=== PATIENT | male | born 1955 | race African-American/Black ===

== ENCOUNTER 2016-11-02 15:58 | Emergency (ER) | payer MEDICAID ==
[~2016-11-02] VITALS: Ht 185.4 cm; Wt 85.3 kg
[~2016-11-02 15:58] MED LIST: BP MED; METF10002 PO
[2016-11-02] MEDS ORDERED: ONDANSETRON 2MG/ML, 2ML IVPush ONE (16:30)
[2016-11-02] MEDS ORDERED: SODIUM CHLORIDE 0.9% 1,000ML IVBOLUS ONE (16:30)
[2016-11-02] MEDS ORDERED: FAMOTIDINE 20 MG/2 ML IVP ONE (16:30)
[2016-11-02] MEDS ORDERED: ONDANSETRON ODT 4 MG ONE (18:21)
[2016-11-02 18:25] VITALS: BP 137/96
[2016-11-02] MEDS ORDERED: ONDANSETRON ODT 4 MG PO ONE (18:30)
== END 2016-11-02 18:44 | disposition home or self-care (01) ==
LOC: ED 18:41
DX: R19.7 Diarrhea, unspecified (principal); R11.2 Nausea with vomiting, unspecified; I10 Essential (primary) hypertension
CPT/HCPCS: 99282; Q0162

== ENCOUNTER 2016-12-29 11:49 | Emergency (ER) | payer MEDICAID ==
[~2016-12-29] VITALS: Ht 185.4 cm; Wt 81.0 kg
[2016-12-29 13:08] VITALS: BP 140/94
== END 2016-12-29 13:22 | disposition home or self-care (01) ==
LOC: ED 12:50
DX: J20.8 Acute bronchitis due to other specified organisms (principal); I10 Essential (primary) hypertension; E11.9 Type 2 diabetes mellitus without complications
CPT/HCPCS: 71020; 93005

== ENCOUNTER 2018-07-28 15:38 | Emergency (ER) | payer MEDICAID ==
[~2018-07-28] VITALS: Ht 185.4 cm; Wt 79.3 kg
[2018-07-28 15:43] VITALS: BP 126/73
--- NOTE | 2018-07-28 17:35 | NUR ---
Pt here for low left sided back pain for about 3 days. Pain radiated down left leg once. No difficulty ambulating and pt walked to ER. Denies urinary symptoms. PMH hypertension. Not currently taking medication. Alert and oriented.
--- NOTE | 2018-07-28 17:56 | NUR ---
RECEVIED REPORT FROM PERRI PANIAGUA. CARE ASSUMED. PT UP FOR RECHECK. FALL PRECAUTIONS IN PLACE. SIDE RAILS UPX2. CALL LIGHT IN REACH
--- NOTE | 2018-07-28 18:15 | NUR ---
PT LAYING ON GURNERY WITH EYES CLOSED WITH SIGNIFICANT OTHER. AWAITING RECHECK. CALL LIGHT IN REACH.
--- NOTE | 2018-07-28 18:32 | NUR ---
DR. CAMARILLO AT BEDSIDE FOR RECHECK.
== END 2018-07-28 18:37 | disposition home or self-care (01) ==
LOC: ED 18:15
DX: S39.012A Strain of muscle, fascia and tendon of lower back, initial encounter (principal); E11.9 Type 2 diabetes mellitus without complications; I10 Essential (primary) hypertension; X58.XXXA Exposure to other specified factors, initial encounter; Y93.89 Activity, other specified; Y92.89 Other specified places as the place of occurrence of the external cause; Y99.8 Other external cause status
CPT/HCPCS: 72110; 99283

== ENCOUNTER 2020-02-28 03:44 | Emergency (ER) | payer MEDICARE, MEDICAID ==
[2020-02-28 03:53] VITALS: BP 150/96
== END 2020-02-28 04:55 | disposition home or self-care (01) ==
LOC: ED 04:14
DX: S50.862A Insect bite (nonvenomous) of left forearm, initial encounter (principal); S50.861A Insect bite (nonvenomous) of right forearm, initial encounter; F15.10 Other stimulant abuse, uncomplicated; F17.210 Nicotine dependence, cigarettes, uncomplicated; E11.9 Type 2 diabetes mellitus without complications; I10 Essential (primary) hypertension; W57.XXXA Bitten or stung by nonvenomous insect and other nonvenomous arthropods, initial encounter; Y93.89 Activity, other specified; Y92.89 Other specified places as the place of occurrence of the external cause; Y99.8 Other external cause status
CPT/HCPCS: 99282; 99406

== ENCOUNTER 2020-03-09 08:43 | Emergency (ER) | payer MEDICARE, MEDICAID ==
[~2020-03-09] VITALS: Ht 185.4 cm; Wt 81.0 kg
--- NOTE | 2020-03-09 09:11 | NUR ---
ASSUMED CARE OF PT AT THIS TIME FROM LOBBY. AMBULATORY TO ROOM WITH STEADY GAIT. 64 Y/O M PRESENTS STATING "MY GOT TREATED FOR STD THIS MORNING, MAYBE CHLAMYDIA OR GHONORRHEA, AND I NEED TO BE CHECKED, I'M NOT HAVING SYMPTOMS BUT I WANT TO BE SURE. MY BLOOD PRESSURE HAS BEEN HIGH I HAVEN'T TAKEN MY MEDICATIONS FOR 5+YEARS." DENIES ANY PAIN, ABD PAIN, PAINFUL URINATION, DISCHARGE, ITCHING. CONT PULSE OX, BP MONITORS. VSS. CALL LIGHT IN REACH. FALL PRECAUTIONS IN PLACE. SPOUSE AT BEDSIDE. DR. COTTON AT BEDSIDE FOR EVALUATION. AWAITING ORDERS. A&OX4.
[2020-03-09] MEDS ORDERED: AZITHROMYCIN 500 MG TABLET ONE (09:28)
[2020-03-09] MEDS ORDERED: CEFTRIAXONE 250 MG ONE (09:29)
[2020-03-09] MEDS ORDERED: CEFTRIAXONE 250 MG IM ONE (09:30)
[2020-03-09] MEDS ORDERED: LIDOCAINE-MPF 1%, 5ML ONE (09:30)
[2020-03-09] MEDS ORDERED: AZITHROMYCIN 500 MG TABLET PO ONE (09:30)
--- NOTE | 2020-03-09 09:38 | NUR ---
PT MEDICATED NOTED IN [facility] PER MD ORDER. DR. COTTON OBTAINED SWAB AND SENT TO LAB
[2020-03-09 09:51] VITALS: BP 133/79
== END 2020-03-09 09:54 | disposition home or self-care (01) ==
LOC: ED 09:17
DX: Z20.2 Contact with and (suspected) exposure to infections with a predominantly sexual mode of transmission (principal); I10 Essential (primary) hypertension; E11.9 Type 2 diabetes mellitus without complications; F17.200 Nicotine dependence, unspecified, uncomplicated
CPT/HCPCS: 87491; 87591; 96372; 99283; J0696

== ENCOUNTER 2020-04-09 17:10 | Emergency (ER) | payer MEDICARE, MEDICAID ==
[~2020-04-09] VITALS: Ht 185.4 cm; Wt 84.0 kg
[2020-04-09 17:21] VITALS: BP 135/98
== END 2020-04-09 18:15 | disposition home or self-care (01) ==
LOC: ED 18:09
DX: B85.1 Pediculosis due to Pediculus humanus corporis (principal)
CPT/HCPCS: 99282

== ENCOUNTER 2020-05-02 11:15 | Emergency (ER) | payer MEDICAID, MEDICARE ==
[~2020-05-02] VITALS: Ht 185.4 cm; Wt 82.8 kg
[2020-05-02 11:32] VITALS: BP 133/99
--- NOTE | 2020-05-02 12:56 | NUR ---
pt to rm from lobby
== END 2020-05-02 13:31 | disposition home or self-care (01) ==
LOC: ED 13:25
DX: B85.1 Pediculosis due to Pediculus humanus corporis (principal); Z59.0 Homelessness
CPT/HCPCS: 99283

== ENCOUNTER 2020-05-11 12:45 | Emergency (ER) | payer MEDICARE, MEDICAID ==
[2020-05-11 13:11] VITALS: BP 161/92
== END 2020-05-11 13:34 | disposition home or self-care (01) ==
LOC: ED 13:18
DX: I10 Essential (primary) hypertension (principal); R21 Rash and other nonspecific skin eruption; R00.0 Tachycardia, unspecified; Z91.14 Patient's other noncompliance with medication regimen
CPT/HCPCS: 99281

== ENCOUNTER 2020-05-21 12:08 | Emergency (ER) | payer MEDICAID, MEDICARE ==
[~2020-05-21] VITALS: Ht 185.4 cm; Wt 84.1 kg
[2020-05-21 12:12] VITALS: BP 168/124
--- NOTE | 2020-05-21 12:35 | NUR ---
PEDIATRIC ONCOLOGY NURSE: Patient given discharge instructions and they have confirmed that they understand the instructions. Patient ambulatory with steady gait.
== END 2020-05-21 12:37 | disposition home or self-care (01) ==
LOC: ED 12:31
DX: R21 Rash and other nonspecific skin eruption (principal); F17.210 Nicotine dependence, cigarettes, uncomplicated; E11.9 Type 2 diabetes mellitus without complications; I10 Essential (primary) hypertension
CPT/HCPCS: 99281; 99406

== ENCOUNTER 2020-06-08 18:48 | Emergency (ER) | payer MEDICAID ==
[~2020-06-08] VITALS: Ht 185.4 cm; Wt 82.5 kg
--- NOTE | 2020-06-08 19:16 | NUR ---
Past week pt feels that BP has been high. Pt complaining of dizziness. Pt has been off BP medications for 4 years.
[2020-06-08 19:50] LABS: ANION GAP 5 mmol/L (5-15); CALCIUM 8.6 mg/dL (8.5-10.1); CHLORIDE 105 mmol/L (98-107)
[2020-06-08 19:54] LABS: BASOPHILS % (AUTO) 1 % (0-1); EOSINOPHILS % (AUTO) 2 % (1-7); LYMPHOCYTES % (AUTO) 43 % (22-44); MD NO; MEAN CORPUSCULAR HEMOGLOBIN 29.7 pg (27.5-34.5); MEAN PLATELET VOLUME 8.6 fL (7.4-10.4); MONOCYTES % (AUTO) 10 % (2-9); NEUTROPHILS % (AUTO) 44 % (42-75); PLATELET COUNT 176 x10^3/uL (130-400); RED BLOOD COUNT 5.33 x10^6/uL (4.38-5.82); RED CELL DISTRIBUTION WIDTH 12.9 % (9.4-14.8)
[2020-06-08 21:17] VITALS: BP 148/94
== END 2020-06-08 21:27 | disposition home or self-care (01) ==
LOC: ED 19:25
DX: R42 Dizziness and giddiness (principal); R94.31 Abnormal electrocardiogram [ECG] [EKG]; I10 Essential (primary) hypertension; E11.9 Type 2 diabetes mellitus without complications; F17.200 Nicotine dependence, unspecified, uncomplicated
CPT/HCPCS: 36415; 80048; 85025; 93005; 99284

== ENCOUNTER 2020-07-09 04:49 | Emergency (ER) | payer MEDICAID ==
[~2020-07-09] VITALS: Ht 185.4 cm; Wt 83.5 kg
[2020-07-09] MEDS ORDERED: AMPICILLIN/SULBACTAM 3 GM in SODIUM CHLORIDE 0.9% 100 ML IV ONE (05:19)
--- NOTE | 2020-07-09 05:22 | NUR ---
pt ambulated back to room.
[2020-07-09] MEDS ORDERED: ONDANSETRON 2MG/ML, 2ML ONE (05:29)
[2020-07-09] MEDS ORDERED: MORPHINE SULFATE 4 MG/ML, 1ML IV PRN (05:30)
[2020-07-09] MEDS ORDERED: MORPHINE SULFATE 4 MG/ML, 1ML ONE (05:30)
[2020-07-09] MEDS ORDERED: ONDANSETRON 2MG/ML, 2ML IVPush ONE (05:30)
[2020-07-09] MEDS ORDERED: SODIUM CHLORIDE FLUSH 10ML SYR IVF ONE (05:30)
--- NOTE | 2020-07-09 05:49 | NUR ---
MD to room to eval pt. IV started to right hand x1 attempt with 20g IV. blood drawn and sent to lab. ivf started, and antibiotics started. label stamper to bedside to draw blood cultures as well. meds given for nausea and for pain. pt tolerated well.
--- NOTE | 2020-07-09 06:06 | NUR ---
pt calm and cooperative. on cr monitor and call light within reach.
[2020-07-09 06:16] LABS: BASOPHILS % (AUTO) 1 % (0-1); EOSINOPHILS % (AUTO) 2 % (1-7); LYMPHOCYTES % (AUTO) 31 % (22-44); MEAN CORPUSCULAR HEMOGLOBIN 30.1 pg (27.5-34.5); MEAN CORPUSCULAR HGB CONC 33.3 g/dL (33.2-36.2); MONOCYTES % (AUTO) 12 % (2-9); NEUTROPHILS % (AUTO) 55 % (42-75); PLATELET COUNT 184 x10^3/uL (130-400); RED BLOOD COUNT 5.25 x10^6/uL (4.38-5.82)
[2020-07-09 06:17] LABS: MD NO
[2020-07-09 06:25] LABS: ALBUMIN 3.4 g/dL (3.4-5.0); ANION GAP 5 mmol/L (5-15); CALCIUM 9.1 mg/dL (8.5-10.1); CHLORIDE 109 mmol/L (98-107)
--- NOTE | 2020-07-09 06:26 | NUR ---
antibiotics complete. ivf NS 1 liter inline. pt resting and on cr monitor, no distress at this time. call light within reach
[2020-07-09 06:27] LABS: CREATININE 1.05 mg/dL (0.7-1.3)
[2020-07-09] MEDS ORDERED: CLINDAMYCIN PMX 300MG/50ML 50 ML IV ONE (06:52)
--- NOTE | 2020-07-09 06:55 | NUR ---
report and care transferred to day shift RN
--- NOTE | 2020-07-09 08:00 | NUR ---
PT TBDC, AWAITING PPWK
[2020-07-09 08:25] VITALS: BP 143/82
== END 2020-07-09 09:41 | disposition home or self-care (01) ==
LOC: ED 06:04
DX: L03.116 Cellulitis of left lower limb (principal); M79.605 Pain in left leg; I10 Essential (primary) hypertension; F17.200 Nicotine dependence, unspecified, uncomplicated
CPT/HCPCS: 36415; 80048; 82040; 85025; 87040; 96365; 96367; 96375; 99284; J0295; J2270; J2405

== ENCOUNTER 2020-07-14 01:15 | Emergency (ER) | payer MEDICAID ==
[~2020-07-14] VITALS: Ht 185.4 cm; Wt 85.0 kg
[2020-07-14 01:20] VITALS: BP 147/94
--- NOTE | 2020-07-14 02:37 | NUR ---
ELECTRICIAN CONTROL EQUIPMENT: PT. TO ROOM FROM LOBBY AT THIS TIME.
--- NOTE | 2020-07-14 02:59 | NUR ---
PT SITTING UPRIGHT ON GURNEY, NAD, VSS. PT DENIES ANY ADDITIONAL NEEDS AT THIS TIME. CALL LIGHT AND PERSONAL BELONGINGS WITHIN REACH. AWAITING ERP.
[2020-07-14] MEDS ORDERED: SULFAMETH./TRIMETHOPRIM DS 800MG/160MG TABLET ONE (03:17)
[2020-07-14] MEDS ORDERED: NEOSPORIN OINT. PKT 1 PACKET ONE (03:21)
[2020-07-14] MEDS ORDERED: SULFAMETH./TRIMETHOPRIM DS 800MG/160MG TABLET PO ONE (03:30)
--- NOTE | 2020-07-14 03:45 | NUR ---
Patient given discharge instructions and they have confirmed that they understand the instructions. Patient ambulatory with steady gait.
== END 2020-07-14 03:56 | disposition home or self-care (01) ==
LOC: ED 03:35
DX: L02.415 Cutaneous abscess of right lower limb (principal); I10 Essential (primary) hypertension; E11.9 Type 2 diabetes mellitus without complications
CPT/HCPCS: 99283

== ENCOUNTER 2020-08-08 21:02 | Emergency (ER) | payer MEDICAID ==
[~2020-08-08] VITALS: Ht 198.1 cm; Wt 83.0 kg
--- NOTE | 2020-08-08 21:13 | NUR ---
NOTCHED BLADE LOADER: EKG DONE IN TRIAGE AT THIS TIME.
[2020-08-08 22:28] LABS: BASOPHILS % (AUTO) 1 % (0-1); EOSINOPHILS % (AUTO) 2 % (1-7); LYMPHOCYTES % (AUTO) 43 % (22-44); MD NO; MEAN CORPUSCULAR HEMOGLOBIN 30.1 pg (27.5-34.5); MEAN CORPUSCULAR HGB CONC 33.3 g/dL (33.2-36.2); MEAN PLATELET VOLUME 8.6 fL (7.4-10.4); MONOCYTES % (AUTO) 13 % (2-9); NEUTROPHILS % (AUTO) 41 % (42-75); PLATELET COUNT 164 x10^3/uL (130-400); RED BLOOD COUNT 4.85 x10^6/uL (4.38-5.82); RED CELL DISTRIBUTION WIDTH 13.3 % (9.4-14.8)
[2020-08-08 22:37] LABS: ALANINE AMINOTRANSFERASE 52 U/L (12-78); ALBUMIN 2.9 g/dL (3.4-5.0); ANION GAP 6 mmol/L (5-15); CALCIUM 8.6 mg/dL (8.5-10.1); CHLORIDE 111 mmol/L (98-107); CREATININE 1.08 mg/dL (0.7-1.3)
[2020-08-08 22:41] LABS: ALKALINE PHOSPHATASE 130 U/L (45-117); BILIRUBIN,TOTAL 0.7 mg/dL (0.2-1.0); TOTAL PROTEIN 6.1 g/dL (6.4-8.2); TROPONIN I < 0.015 ng/mL (0.000-0.045)
[2020-08-08 23:16] VITALS: BP 142/99
== END 2020-08-08 23:18 | disposition home or self-care (01) ==
LOC: ED 21:46
DX: R42 Dizziness and giddiness (principal); R07.9 Chest pain, unspecified; R94.31 Abnormal electrocardiogram [ECG] [EKG]
CPT/HCPCS: 36415; 71045; 80053; 84484; 85025; 93005; 99285

== ENCOUNTER 2020-08-24 12:24 | Emergency (ER) | payer MEDICAID ==
[~2020-08-24] VITALS: Ht 185.4 cm; Wt 87.0 kg
[2020-08-24 12:57] VITALS: BP 167/102
== END 2020-08-24 13:45 | disposition home or self-care (01) ==
LOC: ED 13:00
DX: B86 Scabies (principal)
CPT/HCPCS: 99283

== ENCOUNTER 2020-11-22 13:33 | Inpatient (IN) | payer MEDICAID ==
[~2020-11-22] VITALS: Ht 185.4 cm; Wt 79.7 kg
[2020-11-22] MEDS ORDERED: SODIUM CHLORIDE 0.9% 1,000ML IVBOLUS ONE ×2 (14:00→14:30)
[2020-11-22 14:23] LABS: PH, VENOUS 7.376 pH (7.320-7.420)
[2020-11-22 14:26] LABS: FIO2 ROOM AIR %
[2020-11-22 14:27] LABS: BASOPHILS % (AUTO) 1 % (0-1); EOSINOPHILS % (AUTO) 1 % (1-7); LYMPHOCYTES % (AUTO) 25 % (22-44); MEAN CORPUSCULAR HGB CONC 32.9 g/dL (33.2-36.2); MEAN PLATELET VOLUME 10.5 fL (7.4-10.4); MONOCYTES % (AUTO) 8 % (2-9); NEUTROPHILS % (AUTO) 65 % (42-75); PLATELET COUNT 160 x10^3/uL (130-400); RED BLOOD COUNT 6.53 x10^6/uL (4.38-5.82); RED CELL DISTRIBUTION WIDTH 12.7 % (9.4-14.8)
[2020-11-22 14:29] LABS: MD NO
[2020-11-22 14:34] LABS: ALANINE AMINOTRANSFERASE 133 U/L (12-78); ALBUMIN 3.9 g/dL (3.4-5.0); ANION GAP 7 mmol/L (5-15); CALCIUM 9.9 mg/dL (8.5-10.1); CHLORIDE 93 mmol/L (98-107); CREATININE 1.91 mg/dL (0.7-1.3)
[2020-11-22 14:38] LABS: ALKALINE PHOSPHATASE 281 U/L (45-117); BILIRUBIN,TOTAL 1.8 mg/dL (0.2-1.0); TOTAL PROTEIN 8.6 g/dL (6.4-8.2); TROPONIN I < 0.015 ng/mL (0.000-0.045)
--- NOTE | 2020-11-22 14:52 | NUR ---
PT WITH INCREASED URINATION, THIRST AND HUNGER X 3 DAYS. MOUTH DRY AND FEELING DIZZY. DR GUERRERO AT BEDSIDE, PT ASSESSMENT, POC REVIEWED AND QUESTIONS ANSWERED. PIV EST AND IVF INFUSING W/O DIFFICULTY. ALL MONITORS INPLACE, VSS. CALL LIGHT W/I REACH
--- NOTE | 2020-11-22 14:54 | NUR ---
PT FRIEND, MARLENE PH [phone]. PT GAVE VERBAL OK FOR CLINICAL PRODUCT MANAGER TO DISCUSS PT STAUS WITH MARLENE.
[2020-11-22 15:06] LABS: MICROSCOPIC NOT IND
[2020-11-22] MEDS ORDERED: SODIUM BICARB 8.4%, 50ML SYRINGE IVPush ONE (15:30)
[2020-11-22] MEDS ORDERED: CALCIUM CHLORIDE 10%, 10ML SYR IVPush ONE (15:30)
[2020-11-22] MEDS ORDERED: CALCIUM CHLORIDE 10%, 10ML SYR ONE (15:52)
[2020-11-22] MEDS ORDERED: SODIUM BICARB 8.4%, 50ML SYRINGE ONE (15:52)
--- NOTE | 2020-11-22 15:57 | NUR ---
TASK RN: FSBS 535 AFTER 1ST LITER OF NS -ERP MADE AWARE-ASKED FOR FURTHER ORDERS FOR HYPERGLYCEMIA AND HYPERKALEMIA-ERP CONSIDERING MEDICATED PER [facility] WITH 2ND LITER OF NS, 5ML OF LOU-CL AND 1AMP OF BICARB
[2020-11-22 16:11] LABS: ACETONE, SERUM Small (20mg/dL) (Negative)
--- NOTE | 2020-11-22 16:31 | NUR ---
FSBS 576 AFTER 2ND LITER OF NS REPEAT BMP OBTAINED WELL DR. CHAIREZ AT BEDSIDE (HOSPITALIST)
[2020-11-22 16:50] LABS: ANION GAP 6 mmol/L (5-15); CHLORIDE 105 mmol/L (98-107); CREATININE 1.49 mg/dL (0.7-1.3)
[2020-11-22] MEDS: SODIUM CHLORIDE 0.9% 1,000 ML IV SCH ×2 (17:00→22:06)
[2020-11-22] MEDS: HEPARIN 5,000 UNITS/ML, 1ML SQ SCH ×2 (17:00→18:02)
[2020-11-22] MEDS ORDERED: hydrALAzine 20 MG/ML, 1ML IVPush PRN (17:00)
[2020-11-22] MEDS ORDERED: POLYETHYLENE GLYCOL 17 GM PACKET PO PRN (17:00)
[2020-11-22] MEDS ORDERED: INSULIN REGULAR 100 UNITS/ML, 3ML VIAL IVPush ONE (17:00)
[2020-11-22] MEDS ORDERED: ACETAMINOPHEN 325 MG TABLET PO PRN (17:00)
[2020-11-22] MEDS ORDERED: HYDROcodone/APAP 5/325 TABLET PO PRN (17:00)
[2020-11-22] MEDS ORDERED: ONDANSETRON 2MG/ML, 2ML IV PRN (17:00)
[2020-11-22] MEDS ORDERED: BISACODYL 10 MG SUPP PR PRN (17:00)
[2020-11-22] MEDS: INSULIN LISPRO 100 UNITS/ML, PEN SQ-INSULIN SCH ×2 (18:00→20:18)
[2020-11-22 18:56] LABS: ACETONE, SERUM Small (20mg/dL) (Negative)
[2020-11-22 19:59] VITALS: BP 129/64
[2020-11-22 21:22] LABS: ANION GAP 3 mmol/L (5-15); CALCIUM 8.8 mg/dL (8.5-10.1); CHLORIDE 111 mmol/L (98-107); CREATININE 1.36 mg/dL (0.7-1.3)
[2020-11-23] MEDS: HEPARIN 5,000 UNITS/ML, 1ML SQ SCH ×4 (00:27→17:19)
[2020-11-23 01:32] VITALS: BP 109/72
[2020-11-23 03:26] LABS: BASOPHILS % (AUTO) 1 % (0-1); EOSINOPHILS % (AUTO) 1 % (1-7); LYMPHOCYTES % (AUTO) 27 % (22-44); MD NO; MEAN CORPUSCULAR HEMOGLOBIN 30.1 pg (27.5-34.5); MEAN CORPUSCULAR HGB CONC 33.3 g/dL (33.2-36.2); MEAN PLATELET VOLUME 10.2 fL (7.4-10.4); MONOCYTES % (AUTO) 10 % (2-9); NEUTROPHILS % (AUTO) 61 % (42-75); PLATELET COUNT 121 x10^3/uL (130-400); RED BLOOD COUNT 5.17 x10^6/uL (4.38-5.82); RED CELL DISTRIBUTION WIDTH 12.4 % (9.4-14.8)
[2020-11-23 03:33] LABS: ANION GAP 5 mmol/L (5-15); CALCIUM 8.1 mg/dL (8.5-10.1); CHLORIDE 112 mmol/L (98-107); CREATININE 1.07 mg/dL (0.7-1.3)
[2020-11-23] MEDS: SODIUM CHLORIDE 0.9% 1,000 ML IV SCH (04:00)
[2020-11-23 07:40] VITALS: BP 134/84
[2020-11-23] MEDS ORDERED: INSULIN GLARGINE 100 UNITS/ML, PEN SQ-INSULIN SCH ×2 (09:00)
[2020-11-23 09:23] LABS: ANION GAP 6 mmol/L (5-15); CALCIUM 8.1 mg/dL (8.5-10.1); CHLORIDE 110 mmol/L (98-107); CREATININE 0.98 mg/dL (0.7-1.3)
[2020-11-23 09:38] LABS: ALANINE AMINOTRANSFERASE 94 U/L (12-78); ALKALINE PHOSPHATASE 149 U/L (45-117)
[2020-11-23] MEDS: INSULIN LISPRO 100 UNITS/ML, PEN SQ-INSULIN SCH ×2 (12:31→16:24)
[2020-11-23 13:09] VITALS: BP 145/95
[2020-11-23 15:33] LABS: ANION GAP 4 mmol/L (5-15); CALCIUM 8.1 mg/dL (8.5-10.1); CHLORIDE 110 mmol/L (98-107); CREATININE 1.13 mg/dL (0.7-1.3)
[2020-11-23] MEDS ORDERED: METF750T42 PO (17:52)
[2020-11-23] MEDS ORDERED: INSU100I13 SQ-INSULIN (17:52)
== END 2020-11-23 18:25 | disposition home or self-care (01) | DRG 420 ==
LOC: ED 14:15 → SUATTDRO 15:35 → ORIP 15:47 → 4WST 16:42
PROVIDERS: ADMIT Family Medicine; ATTEND Hospitalist
DX: E11.00 Type 2 diabetes mellitus with hyperosmolarity without nonketotic hyperglycemic-hyperosmolar coma (NKHHC) (principal); N17.0 Acute kidney failure with tubular necrosis; E83.42 Hypomagnesemia; E87.5 Hyperkalemia; Z72.0 Tobacco use; F15.90 Other stimulant use, unspecified, uncomplicated; R55 Syncope and collapse; Z88.8 Allergy status to other drugs, medicaments and biological substances
CPT/HCPCS: 36415; 71045; 80048; 80053; 81003; 82010; 82803; 82947; 82962; 83036; 83605; 83735; 83880; 84075; 84100; 84450; 84460; 84484; 85025; 93005; 96361; 96374; G0378; J1644; J1815; J7030